=== PATIENT | female | born 1960 | race Caucasian/White ===

== ENCOUNTER 2016-08-22 09:16 | Emergency (ER) | payer OTHER ==
--- NOTE | ~2016-08-22 | ER ---
PATIENT'S NAME: TOBIAS HERNANDEZ [facility] AGE: 55 Y [address] ROOM: [place] [address] LOCATION: [facility] ADMIT DATE: 08/22/2016 ER/Outpatient Report DISCHARGE DATE: 08/22/2016 FAMILY PHYSICIAN: PHYSICIAN, NO ATTENDING PHYSICIAN: Bakari Villalta TIME OF ARRIVAL: 0920 hours. TIME OF EVALUATION: 0920 hours. CHIEF COMPLAINT: Fall. HISTORY OF PRESENT ILLNESS: The patient is a 55-year-old female who presents to the emergency department today with a chief complaint of fall. She reports she was carrying her 8- month-old grandchild down the stairs when she slipped and landed on her left ribs. It occurred about 2-1/2 hours prior to arrival. She denies any head injury. No loss of consciousness. It is worse with breathing. It is sharp. Currently, mild in severity. Does report she was ambulatory at the scene. PAST MEDICAL HISTORY: None. PAST SURGICAL HISTORY: Tonsils and appendectomy. SOCIAL HISTORY: The patient denies any tobacco, alcohol, or illicit drug use. ALLERGIES: NO KNOWN DRUG ALLERGIES. MEDICATIONS: None. PRIMARY CARE DOCTOR: Dr. Pablo. REVIEW OF SYSTEMS: All systems are reviewed by myself and are negative with the exception of those discussed in the HPI and Past Medical History. PATIENT'S NAME: TOBIAS HERNANDEZ [facility] AGE: 55 Y [address] ROOM: [place] [address] LOCATION: [facility] ADMIT DATE: 08/22/2016 ER/Outpatient Report DISCHARGE DATE: 08/22/2016 FAMILY PHYSICIAN: PHYSICIAN, NO ATTENDING PHYSICIAN: Bakari Villalta PHYSICAL EXAMINATION: VITAL SIGNS: Weight 69 kg. Blood pressure 148/65, pulse 83, respiratory rate 20, temperature 97.1, and oxygen saturation 99% on room air. GENERAL: The patient is a 55-year-old female who appears stated age, in acute discomfort secondary to pain in her left ribs. HEENT: Normocephalic, atraumatic. Pupils are equal, round, and reactive to light. Extraocular motions are intact. Nares are patent bilaterally. NECK: Supple. There is no nuchal rigidity. CARDIOVASCULAR: Regular rate and rhythm. No murmurs, rubs, or gallops. LUNGS: Clear to auscultation bilaterally. No wheezes, rales, or rhonchi. ABDOMEN: Soft. Does have left upper quadrant tenderness to palpation. No rebound, rigidity, or guarding. Positive bowel sounds. MUSCULOSKELETAL: The patient has tenderness to palpation on left lateral ribs. Moves all 4 extremities. No other bony tenderness to palpation is noted. SKIN: Warm and dry. No rashes or contusions noted. LABORATORY AND X-RAY DATA: X-ray of left ribs and 2-view chest x-ray was obtained, shows no evidence of fracture or dislocation. CT scan of the chest, abdomen, and pelvis was obtained with IV contrast. There is no acute process. IMPRESSION: 1. Acute left rib contusion. 2. Mechanical fall. 3. Initial visit. EMERGENCY DEPARTMENT COURSE: The patient was brought back to the examination room. Seen and evaluated by myself. Imaging was obtained as described above. IV was established. CT imaging was obtained. I have discussed the results with the patient. She was given 60 mg of Toradol IM. I have asked that she follow up with her primary care doctor in 3 to 5 days for re-evaluation. I have discussed return to care instructions including worsening symptoms or any other concerns, to return to the emergency department as soon as possible. I have written a prescription for Piru for home with sedation warning. The patient is agreeable. She is without further questions at this time. DISPOSITION,: The patient is discharged to home in good condition. BAKARI VILLALTA DO PATIENT'S NAME: TOBIAS HERNANDEZ [facility] AGE: 55 Y [address] ROOM: [place] [address] LOCATION: [facility] ADMIT DATE: 08/22/2016 ER/Outpatient Report DISCHARGE DATE: 08/22/2016 FAMILY PHYSICIAN: PHYSICIAN, NO ATTENDING PHYSICIAN: Bakari Villalta/gali /[id number] d: 08/22/16 1355 t: 08/26/[id number], OUTPATIENT REPORT
== END 2016-08-22 12:25 | disposition disaster alternative care site (69) ==
LOC: GACC 09:16
DX: S20.212A Contusion of left front wall of thorax, initial encounter (principal); W01.0XXA Fall on same level from slipping, tripping and stumbling without subsequent striking against object, initial encounter; Z90.89 Acquired absence of other organs; Z90.49 Acquired absence of other specified parts of digestive tract
CPT/HCPCS: J1885; Q9967